=== PATIENT | female | born 1995 | race Caucasian/White ===

== ENCOUNTER 2018-09-09 21:57 | Inpatient (IN) | payer OTHER ==
--- NOTE | 2018-09-09 23:13 | PDOC ---
History of Present Illness - General Chief Complaint: Pain, Acute Stated Complaint: ABDPAIN History Source: Patient - History of Present Illness Initial Comments: 09/09/18 23:34 The patient is a 23 year old female who presents with a three day h/o abdominal pain. Pain is sharp, intermittent, localized to her B/L lower quadrants. Multiple episodes of NBNB emesis today. No fevers/chills. LMP August 26. No lifetime sexual activity States she had a cat scan at the office of her PMD ( Dr. Walters) yesterday that showed appendical inflammation, started on Cipro and Metronizadole. Decided to come to the ED tonight because her pain persisted and she started vomiting. NKDA Surgical: none reported Social: denies toxic habits PMD: Dr. Walters Past History - Past Medical History Allergies/Adverse Reactions: Allergies Allergy/AdvReac Type Severity Reaction Status Date / Time No Known Allergies Allergy Verified 09/02/11 12:11 Home Medications: Ambulatory Orders NK [No Known Home Medication] 09/10/18 COPD: No - Immunization History Immunization Up to Date: Yes - Suicide/Smoking/Psychosocial Hx Smoking Status: No Smoking History: Never smoked Number of Cigarettes Smoked Daily: 0 Hx Alcohol Use: No Drug/Substance Use Hx: No Review of Systems - Review of Systems Constitutional: No: Chills, Fever HEENTM: No: Recent change in vision, Hearing Loss Cardiac (ROS): No: Chest Pain, Lightheadedness, Palpitations, Syncope ABD/GI: Yes: Diarrhea, Vomiting, Abdominal cramping *Physical Exam - Vital Signs Last Vital Signs Temp Pulse Resp BP Pulse Ox 97.2 F L 119 H 20 130/81 98 09/09/18 22:01 09/09/18 22:01 09/09/18 22:01 09/09/18 22:01 09/09/18 22:01 - Physical Exam General Appearance: Yes: Nourished, Appropriately Dressed HEENT: positive: Normal Voice, Hearing Grossly Normal Neck: positive: Trachea midline, Supple Respiratory/Chest: positive: Lungs Clear. negative: Labored Respiration, Rapid RR Cardiovascular: positive: S1, S2 Gastrointestinal/Abdominal: positive: Normal Bowel Sounds, Soft Extremity: positive: Normal Capillary Refill, Normal Inspection ED Treatment Course - LABORATORY CBC & Chemistry Diagram: 09/09/18 23:48 09/09/18 23:48 Medical Decision Making - Medical Decision Making 09/10/18 00:16 23 year old with worsening abdominal pain, emesis, h/o CT scan wiht appendicial inflammation. Tachycardic (119) @ presentation, other VS unremarkable. Reports peritoneal sign (pain worse with walking). Frontal diagnosis: Acute abdomen including appendicitis vs. Ovarian Torsion . Also consider colitis, pancreatitis, gastritis, gastroenteritis. PLAN: 1. TVUS 2. CTAP 3. Basic labs 4. Urine 09/10/18 01:54 Cr 1.4 - h/o CT scan No leukocytosis Call placed to Dr. Walters - suggests hydration with additional 1 L, recommends CT scan 09/10/18 02:[address] Walters, reviewed EMR states patient was evaluated in office on 09/08/18 c/o 3 days of abdominal pain and diarrhea. CMP and CT ordered for this coming week. Clinical suspicion for colitis w/low threshold for appendicitis. As per Dr. Walters, patient did not receive a CT scan 09/10/18 03:52 CTAP shows dilated loops of bowel TVUS negative for torsion, cyst Patient reassessed @ bedside, RLQ guarding on PE Patient has been on antibiotics for 2+ days possibly masking appendicitis. Will admit for surgical evaluation in the a.m. Paged Dr. Walters 09/10/18 03:54 Case d/w Dr. Walters. Accepts for admission. Surgery consult in the a.m. Patient reports to nursing staff she did not receive her CT scan, though patient has a reported CT scan Repeat VS pending 09/10/18 04:35 Repeat VS HR 92, SpO2 98% on RA Morphine for pain control Patient resting comfortably Clinical Impression: ? appendicitis *DC/Admit/Observation/Transfer Diagnosis at time of Disposition: Abdominal pain - Discharge Dispostion Condition at time of disposition: Fair Decision to Admit order: Yes - Referrals - Patient Instructions - Post Discharge Activity
[2018-09-09] MEDS ORDERED: ACETAMINOPHEN 1000 MG/100 ML VIAL (NON FORMULARY) IVPB ONE (23:36)
[2018-09-09] MEDS ORDERED: SODIUM CHLORIDE 0.9% 500 ML INFUS.BAG IV ONE (23:36)
[2018-09-10 00:01] LABS: BASO % 0.2 % (0-2.0); EOS % 0.1 % (0-4.5); HEMATOCRIT 34.7 % (32.4-45.2); HEMOGLOBIN 11.7 GM/dL (10.7-15.3); MCH 29.3 pg (25.7-33.7); MCHC 33.7 g/dl (32.0-36.0); MEAN CELL VOLUME 87.1 fl (80-96); MEAN PLT VOLUME 7.8 fl (7.5-11.1); MONO % 10.8 % (3.8-10.2); NEUT % 74.9 % (42.8-82.8); PLATELET COUNT 233 K/MM3 (134-434); RBC 3.98 M/mm3 (3.60-5.2); RDW 13.5 % (11.6-15.6); WHITE BLOOD COUNT 10.5 K/mm3 (4.0-10.0)
[2018-09-10 00:15] LABS: INR 1.08 (0.83-1.09); PROTHROMBIN TIME (PATIENT) 12.7 SEC (9.7-13.0)
[2018-09-10] MEDS ORDERED: ACETAMINOPHEN INJECTION 100 ML IVPB ONE (00:16)
[2018-09-10 00:18] LABS: ACTIVATED PTT 33.1 SECONDS (25.2-36.5)
[2018-09-10 01:41] LABS: ALBUMIN 3.8 g/dl (3.4-5.0); ALK PHOS 73 U/L (45-117); ANION GAP 8 MMOL/L (8-16); BILIRUBIN,TOTAL 0.2 mg/dL (0.2-1); BLOOD UREA NITROGEN 15 mg/dL (7-18); CALCIUM 8.5 mg/dL (8.5-10.1); CHLORIDE 104 mmol/L (98-107); CO2 24 mmol/L (21-32); CREATININE 1.4 mg/dL (0.55-1.3); GLUCOSE,RANDOM 107 mg/dL (74-106); POTASSIUM 3.4 mmol/L (3.5-5.1); SGOT/AST 17 U/L (15-37); SGPT/ALT 17 U/L (13-61); SODIUM 136 mmol/L (136-145); TOT PROT 7.1 g/dl (6.4-8.2)
[2018-09-10] MEDS ORDERED: ONDANSETRON 4 MG/2 ML VIAL IVPUSH ONE (01:42)
--- NOTE | 2018-09-10 01:42 | PDOC ---
Documentation entered by Michela White SCRIBE, acting as scribe for Roxy Wylie MD. Roxy Wylie MD: This documentation has been prepared by the stepheneChristopher Lincy, SCRIBE, under my direction and personally reviewed by me in its entirety. I confirm that the documentation accurately reflects all work, treatment, procedures, and medical decision making performed by me. Attending Attestation - Resident Resident Name: Sakshi Mccartney - ED Attending Attestation I have performed the following: I have examined & evaluated the patient, The case was reviewed & discussed with the resident, I agree w/resident's findings & plan, Exceptions are as noted - HPI HPI: 09/10/18 00:28 The patient is a 23-year-old female with no reported past medical history presents to the emergency department with abdominal pain. The patient presents with an intermittent sharp pain to the lower abdominal region, associated with multiple episodes of vomiting, nonbloody-bilious. The patient reports following up with PCP, who did a CT scan, which showed appendiceal inflammation. The patient reports he was started on Cipro and Metronidazole. The patient states the pains been constant and decided to be evaluated. Denies fever, chills, chest pain, urinary symptoms or chnages in bowel habits. - Physicial Exam PE: 09/10/18 01:40 awake alert nad lungs clear bilaterally heart rrr no mrg abd soft periumbilical tenderness, rlq ttp. no rebound no guarding skin warm and dry. - Medical Decision Making 09/10/18 01:41 23 yo F with periumbilical pain, rlq pain, had outpt ct uknown results or equivocal results. here with worsenin gpain. nausea, no vomiting. mild ttp on exam rlq and periumbilical differential ovarian pathology cyst, appy, uti pyelo. plna ct a/p labs ivf. ua ucg.
[2018-09-10] MEDS ORDERED: ONDANSETRON 4 MG/2 ML VIAL ONE (03:08)
--- NOTE | 2018-09-10 03:45 | PDOC ---
*Physical Exam - Vital Signs Last Vital Signs Temp Pulse Resp BP Pulse Ox 97.2 F L 119 H 20 130/81 98 09/09/18 22:01 09/09/18 22:01 09/09/18 22:01 09/09/18 22:01 09/09/18 22:01 ED Treatment Course - LABORATORY CBC & Chemistry Diagram: 09/10/18 07:30 09/10/18 11:00 - ADDITIONAL ORDERS Additional order review: Laboratory Results 09/09/18 09/09/18 09/09/18 23:52 23:48 23:48 PT with INR INR PTT (Actin FS) Sodium Potassium Chloride Carbon Dioxide Anion Gap BUN Creatinine Creat Clearance w eGFR Random Glucose Lactic Acid 1.5 Calcium Total Bilirubin AST ALT Alkaline Phosphatase Total Protein Albumin Serum , Qual Negative Blood Type B POSITIVE Antibody Screen Negative 09/09/18 09/09/18 23:48 23:48 PT with INR 12.70 INR 1.08 PTT (Actin FS) 33.1 Sodium 136 Potassium 3.4 L Chloride 104 Carbon Dioxide 24 Anion Gap 8 BUN 15 Creatinine 1.4 H Creat Clearance w eGFR 47.02 Random Glucose 107 H Lactic Acid Calcium 8.5 Total Bilirubin 0.2 AST 17 ALT 17 Alkaline Phosphatase 73 Total Protein 7.1 Albumin 3.8 Serum , Qual Blood Type Antibody Screen 09/09/18 23:48 RBC 3.98 MCV 87.1 MCHC 33.7 RDW 13.5 MPV 7.8 Neutrophils % 74.9 Lymphocytes % 14.0 Monocytes % 10.8 H Eosinophils % 0.1 Basophils % 0.2 - Medications Given in the ED: ED Medications Discontinued Medications Generic Name Dose Route Start Last Admin Trade Name Dony PRN Reason Stop Dose Admin Acetaminophen 1,000 mg 09/09/18 23:36 09/10/18 00:23 Ofirmev Injection - IVPB 09/09/18 23:37 1,000 mg ONCE ONE Administration Ondansetron HCl 4 mg 09/10/18 01:42 09/10/18 03:15 Zofran Injection IVPUSH 09/10/18 01:43 4 mg ONCE ONE Administration Sodium Chloride 1,000 ml 09/09/18 23:36 09/10/18 00:23 Normal Saline - IV 09/09/18 23:37 1,000 ml ONCE ONE Administration Medical Decision Making - Medical Decision Making 09/10/18 03:44 Patient Name: KYM CROSS THIS IS A PRELIMINARY REPORT FROM [facility] DATE OF SERVICE: 2018-09-10 01:47:52 IMAGES: 40 EXAM: Ultrasound pelvis transabdominal and ultrasound pelvis transvaginal and ultrasound color duplex HISTORY: 23-year-old female mid abdominal and right pelvic pain COMPARISON: None. FINDINGS: Mild nonspecific distention of the bowel loops in the right pelvis. Nonspecific bulkiness of the cervix. The uterus measures 8.4 x 3.3 x 4.5 cm. There is no evidence of myometrial masses. The endometrium is normal in thickness and measures 8 mm. The right ovary measures 3 x 1.9 x 2 cm. There are no right ovarian masses. The left ovary measures 2.9 x 1.3 x 1.7 cm. There are no left ovarian masses. There is no free fluid in the pelvis. COLOR DUPLEX: There is satisfactory perfusion to both the left and right ovary with normal appearing arterial and venous spectral waveforms. IMPRESSION: No evidence of ovarian torsion. Mild nonspecific distention of the bowel loops in the right and pelvis. If there is a clinical concern for an abnormality associated with the bowel loops in the right pelvis then further evaluation and workup CT abdomen and pelvis with oral contrast and with IV contrast may be needed. Nonspecific bulkiness of the cervix. If clinically indicated follow-up outpatient [facility] consultation with direct visualization and further evaluation and workup of the cervix may be needed. 09/10/18 20:36 Pt admitted for med surg obs, as she continues to have RLQ rebound and pain. Pt will require nelson to r/o appendicitis. Appy picture has been complicated by the fact that pt has been taking serveral doses of cipro and flagyl *DC/Admit/Observation/Transfer Diagnosis at time of Disposition: Abdominal pain - Discharge Dispostion Condition at time of disposition: Fair - Referrals - Patient Instructions - Post Discharge Activity
[2018-09-10] MEDS ORDERED: morphine CARPU-JECT 2 MG/1 ML DISP.SYRIN IVPUSH ONE (04:15)
[2018-09-10] MEDS ORDERED: morphine SULFATE 4 MG/ML VIAL ONE (04:41)
[2018-09-10 04:52] LABS: URINE APPEARANCE CLEAR; URINE BILIRUBIN NEGATIVE (NEGATIVE); URINE COLOR YELLOW; URINE GLUCOSE (UA) NEGATIVE (NEGATIVE); URINE KETONE NEGATIVE (NEGATIVE); URINE LEUK ESTERASE NEGATIVE (NEGATIVE); URINE NITRITE NEGATIVE (NEGATIVE); URINE PROTEIN NEGATIVE (NEGATIVE); URINE UROBILINOGEN 0.2 mg/dL (0.2-1.0)
[2018-09-10 06:24] VITALS: BMI 24.9
[2018-09-10] MEDS ORDERED: ONDANSETRON 4 MG/2 ML VIAL IM PRN (10:51)
[2018-09-10] MEDS ORDERED: SODIUM CHLORIDE 1,000 ML IV SCH (11:00)
[2018-09-10 11:20] LABS: BASO % 0.3 % (0-2.0); HEMATOCRIT 35.9 % (32.4-45.2); HEMOGLOBIN 11.8 GM/dL (10.7-15.3); LYMPH % 19.7 % (8-40); MCH 28.8 pg (25.7-33.7); MCHC 32.9 g/dl (32.0-36.0); MEAN CELL VOLUME 87.5 fl (80-96); MEAN PLT VOLUME 8.6 fl (7.5-11.1); PLATELET COUNT 235 K/MM3 (134-434); RDW 13.5 % (11.6-15.6); WHITE BLOOD COUNT 9.3 K/mm3 (4.0-10.0)
--- NOTE | 2018-09-10 11:31 | HP ---
Admitting History and Physical - Admission History of Present Illness: 23-year-old female with no PMH, seen in the office for the first time 09/08/18 with 3 day hx of periumbilical abd pain and diarrhea -- denied fever / chills / anorexia/ at time of visit -- she was to be scheduled for CT of abd pelvis as out patient this coming week---but instructed to come to ER if pain persisted or got worse. She presented to the emergency department last night with increased abd pain / nausea and diarrhea. The patient presents with an intermittent sharp pain --descibed as colocky in nature-- to the lower abdominal region, associated with multiple episodes of vomiting, nonbloody- bilious, and watery stools which she describes as dark. She denies recent UTI or any correction urinary problems / reports has not been sexually active for the last 2 yrs / denies fever / chills / dysuria or frequency History Source: Patient, Medical Record Limitations to Obtaining History: No Limitations - Past Medical History Renal/: No: Hematuria ...: No - Smoking History Smoking history: Never smoked Aproximately how many cigarettes per day: 0 - Alcohol/Substance Use Hx Alcohol Use: No - Social History ADL: Independent History of Recent Travel: No Home Medications - Allergies Allergies/Adverse Reactions: Allergies Allergy/AdvReac Type Severity Reaction Status Date / Time No Known Allergies Allergy Verified 09/02/11 12:11 - Home Medications Home Medications: Ambulatory Orders NK [No Known Home Medication] 09/10/18 Review of Systems - Review of Systems Constitutional: denies: Chills, Fever, Loss of Appetite Eyes: reports: No Symptoms HENT: reports: No Symptoms Neck: reports: No Symptoms Cardiovascular: reports: No Symptoms Respiratory: reports: No Symptoms Gastrointestinal: reports: Abdominal Pain, Diarrhea, Nausea. denies: Dysphagia , Rectal Bleeding, Vomiting Blood Genitourinary: denies: Burning, Discharge, Dysuria, Flank Pain, Frequency, Hematuria Musculoskeletal: reports: No Symptoms Integumentary: reports: No Symptoms Neurological: reports: No Symptoms Endocrine: reports: No Symptoms Hematology/Lymphatic: reports: No Symptoms Psychiatric: reports: No Symptoms Physical Examination Vital Signs: Vital Signs Temperature 97.4 F L 09/10/18 09:23 Pulse Rate 83 09/10/18 09:23 Respiratory Rate 18 09/10/18 09:23 Blood Pressure 122/81 09/10/18 09:23 O2 Sat by Pulse Oximetry (%) 97 09/10/18 03:57 Constitutional: Yes: Well Nourished, No Distress, Calm, Mild Distress (due to abdominal pain) Eyes: Yes: WNL HENT: Yes: WNL Neck: Yes: WNL Cardiovascular: Yes: WNL Respiratory: Yes: WNL Gastrointestinal: Yes: WNL, Normal Bowel Sounds, Soft. No: Distention, Hyperactive Bowel Sounds, Hypoactive Bowel Sounds, Palpable Mass, Tenderness, Rebound ...Rectal Exam: Yes: Deferred Renal/: Yes: WNL Breast(s): Yes: WNL Musculoskeletal: Yes: WNL Extremities: Yes: WNL Edema: No Peripheral Pulses WNL: Yes Integumentary: Yes: WNL Neurological: Yes: Alert, Oriented ...Motor Strength: WNL Psychiatric: Yes: Alert, Oriented Problem List - Problems (1) Abdominal pain Assessment/Plan: CT of abd / pelvis at ER - perinephric stranding Rocephin 1gm IV cover for UTI / Pyelo evaluation bausea / poor PO intake GI evaluation ?? IBS / colitis .... new onset Code(s): R10.9 - UNSPECIFIED ABDOMINAL PAIN Qualifiers: Abdominal location: generalized Qualified Code(s): R10.84 - Generalized abdominal pain (2) Dehydration, mild Assessment/Plan: mildly elevated Cr IV fluid trend renal function renal U/S Code(s): E86.0 - DEHYDRATION
[2018-09-10 12:40] LABS: ALBUMIN 3.4 g/dl (3.4-5.0); ALK PHOS 69 U/L (45-117); ANION GAP 8 MMOL/L (8-16); BILIRUBIN,TOTAL 0.2 mg/dL (0.2-1); BLOOD UREA NITROGEN 15 mg/dL (7-18); CALCIUM 8.3 mg/dL (8.5-10.1); CHLORIDE 111 mmol/L (98-107); CO2 20 mmol/L (21-32); CREATININE 2.2 mg/dL (0.55-1.3); GLUCOSE,RANDOM 88 mg/dL (74-106); POTASSIUM 3.9 mmol/L (3.5-5.1); SGOT/AST 21 U/L (15-37); SGPT/ALT 15 U/L (13-61); SODIUM 138 mmol/L (136-145); TOT PROT 6.4 g/dl (6.4-8.2)
[2018-09-10] MEDS: SODIUM CHLORIDE 1,000 ML IV SCH (13:21)
[2018-09-10] MEDS ORDERED: cefTRIAXone SODIUM 1 GM VIAL ONE (13:25)
[2018-09-10] MEDS ORDERED: DEXTROSE 5%-WATER - 50 ML IVPB ONE (13:25)
[2018-09-10] MEDS: CEFTRIAXONE 1 GM in DEXTROSE 5%-WATER - 50 ML IVPB SCH (13:27)
[2018-09-10 13:28] LABS: AMYLASE 39 U/L (25-115); LIPASE 171 U/L (73-393)
[2018-09-10] MEDS ORDERED: ONDANSETRON 4 MG/2 ML VIAL IVPB PRN (18:33)
[2018-09-11] MEDS: SODIUM CHLORIDE 1,000 ML IV SCH ×3 (05:10→18:48)
[2018-09-11 07:53] LABS: ALBUMIN 3.1 g/dl (3.4-5.0); ALK PHOS 60 U/L (45-117); ANION GAP 11 MMOL/L (8-16); BASO % 0.2 % (0-2.0); BILIRUBIN,TOTAL 0.3 mg/dL (0.2-1); BLOOD UREA NITROGEN 14 mg/dL (7-18); CALCIUM 7.8 mg/dL (8.5-10.1); CHLORIDE 110 mmol/L (98-107); CO2 22 mmol/L (21-32); CREATININE 1.9 mg/dL (0.55-1.3); EOS % 0.3 % (0-4.5); GLUCOSE,RANDOM 84 mg/dL (74-106); HEMATOCRIT 33.6 % (32.4-45.2); LYMPH % 23.5 % (8-40); MCH 28.7 pg (25.7-33.7); MCHC 32.8 g/dl (32.0-36.0); MEAN CELL VOLUME 87.6 fl (80-96); MEAN PLT VOLUME 8.5 fl (7.5-11.1); MONO % 11.1 % (3.8-10.2); NEUT % 64.9 % (42.8-82.8); PLATELET COUNT 229 K/MM3 (134-434); POTASSIUM 4.4 mmol/L (3.5-5.1); RBC 3.83 M/mm3 (3.60-5.2); RDW 13.8 % (11.6-15.6); SGOT/AST 25 U/L (15-37); SGPT/ALT 13 U/L (13-61); SODIUM 142 mmol/L (136-145); TOT PROT 5.8 g/dl (6.4-8.2); WHITE BLOOD COUNT 9.4 K/mm3 (4.0-10.0)
--- NOTE | 2018-09-11 08:03 | CON.GI ---
Consult Consult Specialty:: GI Referred by:: Dr. Walters Reason for Consultation:: Abdominal pain - History of Present Illness History of Present Illness: Patient is a 23 y/o female with no significant past medical history. Patient states experiencing mid abdominal pain since Tuesday. Pain was described as burning, radiating to B/L lower quadrants, and was exacerbated with eating. Patient saw her PMD on 09/08 and was prescribed Flagyl and Ciprofloxacin for her abdominal pain. Abdominal pain continued and on 09/09 develop nausea and vomiting x 1 episode. She began experiencing non-bloody diarrhea, no fever, night awakening, or recent travel. CT scan in ER shows few diverticula in the distal descending and proximal sigmoid colon without gross evidence of acute diverticulitis, normal appearing appendix. Since admission has been having nausea and one episode of diarrhea this morning. - History Source History Provided By: Patient Limitations to Obtaining History: No Limitations - Past Medical History Renal/: No: Hematuria ...: No - Alcohol/Substance Use Hx Alcohol Use: No History of Substance Use: reports: None - Smoking History Smoking history: Never smoked Aproximately how many cigarettes per day: 0 - Social History ADL: Independent History of Recent Travel: No Home Medications - Allergies Allergies/Adverse Reactions: Allergies Allergy/AdvReac Type Severity Reaction Status Date / Time No Known Allergies Allergy Verified 09/02/11 12:11 - Home Medications Home Medications: Ambulatory Orders NK [No Known Home Medication] 09/10/18 Review of Systems - Review of Systems Constitutional: reports: No Symptoms Eyes: reports: No Symptoms HENT: reports: No Symptoms Neck: reports: No Symptoms Cardiovascular: reports: No Symptoms Respiratory: reports: No Symptoms Gastrointestinal: reports: Abdominal Pain, Diarrhea, Nausea, Vomiting Genitourinary: reports: No Symptoms Breasts: reports: No Symptoms Reported Musculoskeletal: reports: No Symptoms Integumentary: reports: No Symptoms Neurological: reports: No Symptoms Endocrine: reports: No Symptoms Hematology/Lymphatic: reports: No Symptoms Psychiatric: reports: No Symptoms Physical Exam-GI Vital Signs: Vital Signs Temperature 98.6 F 09/11/18 05:57 Pulse Rate 52 L 09/11/18 05:57 Respiratory Rate 18 09/11/18 05:57 Blood Pressure 122/71 09/11/18 05:57 O2 Sat by Pulse Oximetry (%) 97 09/10/18 03:57 Constitutional: Yes: No Distress, Calm Eyes: Yes: Conjunctiva Clear HENT: Yes: Atraumatic Cardiovascular: Yes: Regular Rate and Rhythm Respiratory: Yes: Regular, CTA Bilaterally Gastrointestinal Inspection: Yes: WNL. No: Ascites, Distention, Hernia, Scars, Other ...Auscultate: Yes: Normoactive Bowel Sounds. No: Hyperactive Bowel Sounds, Hypoactive Bowel Sounds, No Bowel Sounds, Other ...Palpate: Yes: Soft, Tenderness (epigastric). No: Firm/Rigid, Guarding, Hepatomegaly, Mass, Pulsatile Mass, Splenomegaly, Tenderness, Epigastium, Tenderness, Rebound, Other ...Percussion: Yes: Tympanitic. No: Dullness, Fluid Wave, Other Neurological: Yes: Alert, Oriented Psychiatric: Yes: Alert, Oriented Labs: CBC, BMP 09/11/18 06:48 INR, PTT INR 1.08 (0.83-1.09) 09/09/18 23:48 Active Medications Generic Name Dose Route Start Last Admin Trade Name Freq PRN Reason Stop Dose Admin Sodium Chloride 1,000 mls @ 200 mls/hr 09/10/18 11:37 09/11/18 05:10 Normal Saline - IV 200 mls/hr ASDIR AC Administration Ceftriaxone Sodium 1 gm/ 50 mls @ 100 mls/hr 09/10/18 12:15 09/10/18 13:27 Dextrose IVPB 100 mls/hr DAILY AC Administration Protocol Ondansetron HCl 4 mg 09/10/18 18:33 Zofran Injection IVPB Q6H PRN NAUSEA AND/OR VOMITING Imaging - Results Cat Scan: Report Reviewed Ultrasound: Report Reviewed Problem List - Problems (1) Abdominal pain Assessment/Plan: R>Abdominal US R/O gallstones >IV hydration >pending stool culture and c-diff >zofran prn for nausea >start on pantoprazole 40mg BID >reglan 10mg IVPB TID Code(s): R10.9 - UNSPECIFIED ABDOMINAL PAIN
[2018-09-11] MEDS ORDERED: DEXTROSE 5%-WATER - 50 ML IVPB ONE (09:05)
[2018-09-11] MEDS ORDERED: cefTRIAXone SODIUM 1 GM VIAL ONE (09:05)
[2018-09-11] MEDS ORDERED: METOCLOPRAMIDE HCL INJECTION 10 MG/2 ML VIAL IVPUSH PRN (09:28)
[2018-09-11] MEDS: CEFTRIAXONE 1 GM in DEXTROSE 5%-WATER - 50 ML IVPB SCH (10:00)
[2018-09-11] MEDS ORDERED: PANTOPRAZOLE SODIUM 40 MG VIAL IVPUSH SCH (10:00)
[2018-09-11] MEDS ORDERED: PANTOPRAZOLE SODIUM 40 MG in SODIUM CHLORIDE 100 ML IVPB SCH (10:00)
--- NOTE | 2018-09-11 12:57 | CON.GU ---
Consult Consult Specialty:: urology Referred by:: Romeo Reason for Consultation:: acute renal insufficiency with question of hydronephrosis - History of Present Illness Chief Complaint: acute renal insufficiency History of Present Illness: Patient is a 23 year old female with history of diarrhea, fever, and abdominal pain. Patient denies gross hematuria, dysure, or history of kidney stones. The patient had an initial CT scan which showed mild bilateral hydronephrosis. Two subsequent renal sonograms showed no evidence of hydronephrosis. The patient denies flank pain. - History Source History Provided By: Patient Limitations to Obtaining History: No Limitations - Past Medical History Renal/: No: Hematuria ...: No - Alcohol/Substance Use Hx Alcohol Use: No History of Substance Use: reports: None - Smoking History Smoking history: Never smoked Aproximately how many cigarettes per day: 0 - Social History ADL: Independent History of Recent Travel: No Home Medications - Allergies Allergies/Adverse Reactions: Allergies Allergy/AdvReac Type Severity Reaction Status Date / Time No Known Allergies Allergy Verified 09/02/11 12:11 - Home Medications Home Medications: Ambulatory Orders NK [No Known Home Medication] 09/10/18 Physical Exam- Vital Signs: Vital Signs Temperature 97.7 F 09/11/18 10:00 Pulse Rate 53 L 09/11/18 10:00 Respiratory Rate 18 09/11/18 10:00 Blood Pressure 124/77 09/11/18 10:00 O2 Sat by Pulse Oximetry (%) 100 09/11/18 09:00 Constitutional: Yes: Well Nourished, No Distress, Calm Eyes: Yes: WNL, Conjunctiva Clear, EOM Intact HENT: Yes: WNL, Atraumatic, Normocephalic Neck: Yes: WNL, Supple, Trachea Midline Respiratory: Yes: WNL Gastrointestinal: Yes: Soft, Hypoactive Bowel Sounds Renal/: Yes: WNL Kidneys: Yes: WNL Pelvis: Yes: WNL External Genitalia: Yes: WNL Musculoskeletal: Yes: WNL Extremities: Yes: WNL Labs: CBC, BMP 09/11/18 06:48 09/11/18 06:48 Imaging - Results Cat Scan: Report Reviewed Ultrasound: Report Reviewed Assessment/Plan impression acute renal insufficiency without evidence of obstructive uropathy plan renal insufficiency most likely seconday to dehydration no evidence of obstuctive uropathy
--- NOTE | 2018-09-11 19:25 | PN ---
Progress Note (short form) - Note Progress Note: ashely seen and examined this am episode of vomiting yesterday with upper abdominal discomfort today headed for U/S Vital Signs Period Temp Pulse Resp BP Sys/Dueñas Pulse Ox Last 24 Hr 97.7 F-99.9 F 52-75 16-18 111-126/67-84 100 neck supple heart S1/s2 regular Lungs clear bilat abd soft non tneder BS + ext non edema CBC, BMP 09/11/18 06:48 09/11/18 06:48 abdominal U/S ordered r/o gall bladder stones renal U/S reviewed -- kidneys unremarkable CT abdo / pelvis reviewed -- preinephric stranding ?? Microbiology 09/11/18 06:00 Stool Clostridioides difficile Antigen - Final 09/11/18 06:00 Stool Clostridioides difficile Toxin Assay - Final 09/10/18 04:39 Urine - Urine Clean Catch Urine Culture - Final NO GROWTH OBTAINED Active Medications Sodium Chloride (Normal Saline -) 1,000 mls @ 200 mls/hr IV ASDIR AC Last Admin: 09/11/18 18:48 Dose: 200 mls/hr Ceftriaxone Sodium 1 gm/ (Dextrose) 50 mls @ 100 mls/hr IVPB DAILY [facility]; Protocol Last Admin: 09/11/18 10:00 Dose: 100 mls/hr Metronidazole (Flagyl -) 250 mg PO TID AC Ondansetron HCl (Zofran Injection) 4 mg IVPB Q6H PRN PRN Reason: NAUSEA AND/OR VOMITING Pantoprazole Sodium (Protonix -) 40 mg PO DAILY [facility] assmt / plan # SAVAGE non specific finding CT negative U/S Cr inc in spite if IV fluids U/A nephrology consult # Abdominal pain recent onset ? diet related IBS ?? abdominal u/s GI consult Problem List - Problems (1) Abdominal pain Code(s): R10.9 - UNSPECIFIED ABDOMINAL PAIN (2) Dehydration, mild Code(s): E86.0 - DEHYDRATION
[2018-09-11] MEDS: metroNIDAZOLE 250 MG TABLET PO SCH (22:01)
[2018-09-12] MEDS: SODIUM CHLORIDE 1,000 ML IV SCH ×4 (00:16→16:27)
[2018-09-12] MEDS: metroNIDAZOLE 250 MG TABLET PO SCH ×3 (05:33→21:13)
[2018-09-12 07:35] LABS: BASO % 0.1 % (0-2.0); EOS % 0.3 % (0-4.5); HEMATOCRIT 32.8 % (32.4-45.2); HEMOGLOBIN 11.1 GM/dL (10.7-15.3); LYMPH % 22.7 % (8-40); MCH 29.1 pg (25.7-33.7); MCHC 33.9 g/dl (32.0-36.0); MEAN PLT VOLUME 8.2 fl (7.5-11.1); MONO % 8.5 % (3.8-10.2); NEUT % 68.4 % (42.8-82.8); PLATELET COUNT 231 K/MM3 (134-434); RBC 3.81 M/mm3 (3.60-5.2); RDW 13.5 % (11.6-15.6); WHITE BLOOD COUNT 8.6 K/mm3 (4.0-10.0)
[2018-09-12 08:22] LABS: ALBUMIN 2.8 g/dl (3.4-5.0); ALK PHOS 57 U/L (45-117); ANION GAP 7 MMOL/L (8-16); BILIRUBIN,TOTAL 0.3 mg/dL (0.2-1); BLOOD UREA NITROGEN 9 mg/dL (7-18); CALCIUM 7.7 mg/dL (8.5-10.1); CHLORIDE 112 mmol/L (98-107); CO2 21 mmol/L (21-32); CREATININE 1.1 mg/dL (0.55-1.3); GLUCOSE,RANDOM 78 mg/dL (74-106); LDH 211 U/L (84-246); POTASSIUM 3.8 mmol/L (3.5-5.1); SGOT/AST 18 U/L (15-37); SGPT/ALT 13 U/L (13-61); SODIUM 141 mmol/L (136-145); TOT PROT 5.6 g/dl (6.4-8.2)
[2018-09-12] MEDS ORDERED: cefTRIAXone SODIUM 1 GM VIAL ONE (08:47)
[2018-09-12] MEDS ORDERED: DEXTROSE 5%-WATER - 50 ML IVPB ONE (08:47)
--- NOTE | 2018-09-12 08:54 | PN.GI ---
GI Progress Note Subjective: Patient complain of nausea this morning accompanied wiht mid abdominal pain described as feeling "gassy and bloated". Abdominal US shows normal gallbladder and biliary tree. Denies vomiting, diarrhea, rectal bleeding. - Objective Vital Signs: Vital Signs Temperature 99.2 F 09/12/18 06:23 Pulse Rate 85 09/12/18 06:23 Respiratory Rate 18 09/12/18 06:23 Blood Pressure 128/77 09/12/18 06:23 O2 Sat by Pulse Oximetry (%) 100 09/11/18 21:00 Constitutional: No Distress, Calm Eyes: Yes: Conjunctiva Clear HENT: Yes: Atraumatic Cardiovascular: Yes: Regular Rate and Rhythm Respiratory: Yes: Regular, CTA Bilaterally Gastrointestinal Inspection: Yes: WNL. No: Ascites, Distention, Hernia, Scars, Other ...Auscultate: Yes: Normoactive Bowel Sounds. No: Hyperactive Bowel Sounds, Hypoactive Bowel Sounds, No Bowel Sounds, Other ...Palpate: Yes: Soft, Tenderness (mid abdomen, b/l lower quadrants). No: Firm/ Rigid, Guarding, Hepatomegaly, Mass, Pulsatile Mass, Splenomegaly, Tenderness, Epigastium, Tenderness, Rebound, Other ...Percussion: Yes: Tympanitic. No: Dullness, Fluid Wave, Other Neurological: Yes: Alert, Oriented Psychiatric: Yes: Alert, Oriented Labs: CBC, BMP 09/12/18 07:15 09/12/18 07:15 INR, PTT INR 1.08 (0.83-1.09) 09/09/18 23:48 Active Medications Generic Name Dose Route Start Last Admin Trade Name Freq PRN Reason Stop Dose Admin Sodium Chloride 1,000 mls @ 200 mls/hr 09/10/18 11:37 09/12/18 05:33 Normal Saline - IV 200 mls/hr ASDIR AC Administration Ceftriaxone Sodium 1 gm/ 50 mls @ 100 mls/hr 09/10/18 12:15 09/11/18 10:00 Dextrose IVPB 100 mls/hr DAILY AC Administration Protocol Metronidazole 250 mg 09/11/18 22:00 09/12/18 05:33 Flagyl - PO 250 mg TID AC Administration Ondansetron HCl 4 mg 09/10/18 18:33 Zofran Injection IVPB Q6H PRN NAUSEA AND/OR VOMITING Pantoprazole Sodium 40 mg 09/12/18 10:00 Protonix - PO DAILY AC Problem List - Problems (1) Abdominal pain Assessment/Plan: R>Abdominal US reviewed >IV hydration >stool culture and c-diff neg >zofran prn for nausea >pantoprazole 40mg BID >reglan 10mg IVPB TID Code(s): R10.9 - UNSPECIFIED ABDOMINAL PAIN Qualifiers: Abdominal location: generalized Qualified Code(s): R10.84 - Generalized abdominal pain
--- NOTE | 2018-09-12 09:48 | PN ---
Progress Note (short form) - Note Progress Note: ashely seen and examined this am episode of vomiting yesterday with upper abdominal discomfort Vital Signs Period Temp Pulse Resp BP Sys/Dueñas Pulse Ox Last 24 Hr 97.7 F-99.2 F 53-85 18-18 111-128/69-84 100 neck supple heart S1/s2 regular Lungs clear bilat abd soft non tneder BS + ext non edema CBC, BMP 09/12/18 07:15 09/12/18 07:15 CBC, BMP 09/11/18 06:48 09/11/18 06:48 abdominal U/S Nl gallbladder / no significant findings renal U/S reviewed -- kidneys unremarkable CT abdo / pelvis reviewed -- preinephric stranding ?? Microbiology 09/11/18 06:00 Stool Salmonella/Shigella Culture - Preliminary NO ENTERIC PATHOGENS, 24 HOURS, ON PRIMARY PLATES 09/11/18 06:00 Stool Yersinia Culture - Preliminary NO ENTERIC PATHOGENS, 24 HOURS, ON PRIMARY PLATES 09/11/18 06:00 Stool Vibrio Culture - Final NO GROWTH OF VIBRIO SPECIES OBTAINED 09/11/18 06:00 Stool Escherichia coli 0157 Culture - Final NO GROWTH OF E COLI 0157 OBTAINED 09/11/18 06:00 Stool Clostridioides difficile Antigen - Final 09/11/18 06:00 Stool Clostridioides difficile Toxin Assay - Final 09/10/18 04:39 Urine - Urine Clean Catch Urine Culture - Final NO GROWTH OBTAINED Active Medications Sodium Chloride (Normal Saline -) 1,000 mls @ 200 mls/hr IV ASDIR [facility] Last Admin: 09/12/18 05:33 Dose: 200 mls/hr Ceftriaxone Sodium 1 gm/ (Dextrose) 50 mls @ 100 mls/hr IVPB DAILY [facility]; Protocol Last Admin: 09/11/18 10:00 Dose: 100 mls/hr Metronidazole (Flagyl -) 250 mg PO TID [facility] Last Admin: 09/12/18 05:33 Dose: 250 mg Ondansetron HCl (Zofran Injection) 4 mg IVPB Q6H PRN PRN Reason: NAUSEA AND/OR VOMITING Pantoprazole Sodium (Protonix -) 40 mg PO DAILY [facility] assmt / plan # SAVAGE non specific finding CT negative U/S Cr back to Nl this am w/u in progress nephrology consult # Abdominal pain recent onset ? diet related IBS ?? abdominal u/s negative GI consult appreciated Problem List - Problems (1) Abdominal pain Code(s): R10.9 - UNSPECIFIED ABDOMINAL PAIN Qualifiers: Abdominal location: generalized Qualified Code(s): R10.84 - Generalized abdominal pain (2) Dehydration, mild Code(s): E86.0 - DEHYDRATION
[2018-09-12] MEDS: PANTOPRAZOLE 40 MG TABLET (FP) PO SCH (09:57)
[2018-09-12] MEDS: CEFTRIAXONE 1 GM in DEXTROSE 5%-WATER - 50 ML IVPB SCH (09:58)
--- NOTE | 2018-09-12 17:37 | CONSULT ---
Consult Consult Specialty:: Nephrology Reason for Consultation:: DAVID - History of Present Illness Chief Complaint: abdominal pain History of Present Illness: Pt is a 23 year old female with no pmhx who presented with abdominal pain a few days ago. She says that she had a few episodes of vomiting. She has not had much appetite so she wasnt really eating or drinking for days. She denies fevers or chills. She feels that the pain was epigastric. She was found to be in DAVID and I was called to evaluate her. She says that the abdominal pain is improved today. SHe is tolerating clears. She denies family hx of CKD or ESRD. She denies nsaid use. She denies dysuria or hematuria. She denies flank pain. - History Source History Provided By: Patient - Past Medical History Renal/: No: Hematuria ...: No - Alcohol/Substance Use Hx Alcohol Use: No History of Substance Use: reports: None - Smoking History Smoking history: Never smoked Aproximately how many cigarettes per day: 0 - Social History ADL: Independent History of Recent Travel: No Home Medications - Allergies Allergies/Adverse Reactions: Allergies Allergy/AdvReac Type Severity Reaction Status Date / Time No Known Allergies Allergy Verified 09/02/11 12:11 - Home Medications Home Medications: Ambulatory Orders NK [No Known Home Medication] 09/10/18 Family Disease History - Family Disease History Family History: Denies Review of Systems - Review of Systems Constitutional: reports: Malaise. denies: Chills, Fever Eyes: reports: No Symptoms HENT: reports: No Symptoms Neck: reports: No Symptoms Cardiovascular: reports: No Symptoms Respiratory: reports: No Symptoms Gastrointestinal: reports: Abdominal Pain, Vomiting Genitourinary: reports: No Symptoms. denies: Hematuria Musculoskeletal: reports: No Symptoms Integumentary: reports: No Symptoms Neurological: reports: No Symptoms Endocrine: reports: No Symptoms Hematology/Lymphatic: reports: No Symptoms Psychiatric: reports: No Symptoms Physical Exam Vital Signs: Vital Signs Temperature 98.0 F 09/12/18 14:44 Pulse Rate 61 09/12/18 14:44 Respiratory Rate 18 09/12/18 14:44 Blood Pressure 108/65 09/12/18 14:44 O2 Sat by Pulse Oximetry (%) 100 09/11/18 21:00 Constitutional: Yes: Calm Eyes: Yes: Conjunctiva Clear HENT: Yes: Atraumatic Neck: Yes: Supple Cardiovascular: Yes: S1, S2 Respiratory: Yes: CTA Bilaterally Gastrointestinal: Yes: Normal Bowel Sounds, Soft Renal/: Yes: WNL. No: CVA Tenderness - Left, CVA Tenderness - Right Musculoskeletal: Yes: WNL Edema: No Integumentary: Yes: WNL Neurological: Yes: Oriented Psychiatric: Yes: Oriented Labs: CBC, BMP 09/12/18 07:15 09/12/18 07:15 Laboratory Tests 09/09/18 09/09/18 09/10/18 23:48 23:48 04:39 WBC 10.5 H Sodium Potassium Chloride Carbon Dioxide Creatinine 1.4 H Urine Protein Negative Urine Blood Negative LAVELL Screen c-ANCA Proteinase 3 (PR3) p-ANCA Atypical p-ANCA Myeloperoxidase Ab 09/10/18 09/10/18 09/11/18 07:30 11:00 06:48 WBC 9.3 9.4 Sodium 138 Potassium 3.9 Chloride 111 H Carbon Dioxide 20 L Creatinine 2.2 H Urine Protein Urine Blood LAVELL Screen c-ANCA Proteinase 3 (PR3) p-ANCA Atypical p-ANCA Myeloperoxidase Ab 09/11/18 09/12/18 09/12/18 06:48 07:15 07:15 WBC 8.6 Sodium Potassium Chloride Carbon Dioxide Creatinine 1.9 H 1.1 Urine Protein Urine Blood LAVELL Screen c-ANCA Proteinase 3 (PR3) p-ANCA Atypical p-ANCA Myeloperoxidase Ab 09/12/18 07:15 WBC Sodium Potassium Chloride Carbon Dioxide Creatinine Urine Protein Urine Blood [facility]AVELL Screen Pending c-ANCA Pending Proteinase 3 (PR3) Pending p-ANCA Pending Atypical p-ANCA Pending Myeloperoxidase Ab Pending Imaging - Results Ultrasound: Report Reviewed Problem List - Problems (1) Dehydration Code(s): E86.0 - DEHYDRATION (2) Abdominal pain Code(s): R10.9 - UNSPECIFIED ABDOMINAL PAIN Qualifiers: Abdominal location: generalized Qualified Code(s): R10.84 - Generalized abdominal pain Assessment/Plan Current Medications Generic Name Dose Route Start Last Admin Trade Name Freq PRN Reason Stop Dose Admin Sodium Chloride 1,000 mls @ 200 mls/hr 09/10/18 11:37 09/12/18 16:27 Normal Saline - IV 200 mls/hr ASDIR [facility] Administration Ceftriaxone Sodium 1 gm/ 50 mls @ 100 mls/hr 09/10/18 12:15 09/12/18 09:58 Dextrose IVPB 100 mls/hr DAILY [facility] Administration Protocol Metronidazole 250 mg 09/11/18 22:00 09/12/18 14:02 Flagyl - PO 250 mg TID [facility] Administration Ondansetron HCl 4 mg 09/10/18 18:33 09/12/18 16:27 Zofran Injection IVPB 4 mg Q6H PRN Administration NAUSEA AND/OR VOMITING Pantoprazole Sodium 40 mg 09/12/18 10:00 09/12/18 09:57 Protonix - PO 40 mg DAILY [facility] Administration Impression 1. DAVID 2. dehydration 3. abdominal pain Plan - ua negative for blood or protein - renal function is improved - repeat labs in am - follow serologies - david likely from dehydration, secondary to GI losses - can decrease rate of fluids - repeat ua - pt now tolerating diet Dr Muse
[2018-09-12] MEDS ORDERED: SODIUM CHLORIDE 1,000 ML IV SCH (17:42)
[2018-09-13] MEDS: metroNIDAZOLE 250 MG TABLET PO SCH (05:42)
[2018-09-13 07:20] LABS: BASO % 0.1 % (0-2.0); EOS % 1.1 % (0-4.5); HEMATOCRIT 31.3 % (32.4-45.2); HEMOGLOBIN 10.7 GM/dL (10.7-15.3); LYMPH % 23.9 % (8-40); MCH 29.1 pg (25.7-33.7); MCHC 34.1 g/dl (32.0-36.0); MEAN CELL VOLUME 85.3 fl (80-96); MEAN PLT VOLUME 8.2 fl (7.5-11.1); MONO % 7.5 % (3.8-10.2); NEUT % 67.4 % (42.8-82.8); PLATELET COUNT 244 K/MM3 (134-434); RBC 3.66 M/mm3 (3.60-5.2); RDW 13.2 % (11.6-15.6); WHITE BLOOD COUNT 7.9 K/mm3 (4.0-10.0)
[2018-09-13 07:46] LABS: ALBUMIN 2.8 g/dl (3.4-5.0); ALK PHOS 55 U/L (45-117); ANION GAP 5 MMOL/L (8-16); BILIRUBIN,TOTAL 0.3 mg/dL (0.2-1); BLOOD UREA NITROGEN 5 mg/dL (7-18); CALCIUM 7.9 mg/dL (8.5-10.1); CHLORIDE 109 mmol/L (98-107); CO2 24 mmol/L (21-32); CREATININE 0.9 mg/dL (0.55-1.3); GLUCOSE,RANDOM 96 mg/dL (74-106); POTASSIUM 3.5 mmol/L (3.5-5.1); SGOT/AST 20 U/L (15-37); SGPT/ALT 17 U/L (13-61); SODIUM 139 mmol/L (136-145); TOT PROT 5.6 g/dl (6.4-8.2)
[2018-09-13 08:36] LABS: URINE APPEARANCE CLEAR; URINE BILIRUBIN NEGATIVE (NEGATIVE); URINE COLOR YELLOW; URINE GLUCOSE (UA) NEGATIVE (NEGATIVE); URINE KETONE NEGATIVE (NEGATIVE); URINE LEUK ESTERASE NEGATIVE (NEGATIVE); URINE NITRITE NEGATIVE (NEGATIVE); URINE PROTEIN NEGATIVE (NEGATIVE); URINE UROBILINOGEN 0.2 mg/dL (0.2-1.0)
[2018-09-13] MEDS ORDERED: cefTRIAXone SODIUM 1 GM VIAL ONE (09:07)
[2018-09-13] MEDS ORDERED: DEXTROSE 5%-WATER - 50 ML IVPB ONE (09:07)
[2018-09-13 09:17] VITALS: BP 112/84; PULSE 66; TEMP 98.6
--- NOTE | 2018-09-13 09:47 | PN ---
Progress Note (short form) - Note Progress Note: ashely seen and examined this am episode of vomiting yesterday with upper abdominal discomfort Vital Signs Period Temp Pulse Resp BP Sys/Dueñas Pulse Ox Last 24 Hr 97.7 F-99.2 F 53-85 18-18 111-128/69-84 100 neck supple heart S1/s2 regular Lungs clear bilat abd soft non tneder BS + ext non edema CBC, BMP 09/13/18 06:05 09/13/18 06:05 CBC, BMP 09/12/18 07:15 09/12/18 07:15 CBC, BMP 09/11/18 06:48 09/11/18 06:48 abdominal U/S Nl gallbladder / no significant findings renal U/S reviewed -- kidneys unremarkable CT abdo / pelvis reviewed -- preinephric stranding ?? Microbiology 09/11/18 06:00 Stool Salmonella/Shigella Culture - Final NO GROWTH OF SALMONELLA OR SHIGELLA SPECIES OBTAINED 09/11/18 06:00 Stool Campylobacter Culture - Final NO GROWTH OF CAMPYLOBACTER SPECIES OBTAINED 09/11/18 06:00 Stool Yersinia Culture - Final NO GROWTH OF YERSINIA SPECIES OBTAINED 09/11/18 06:00 Stool Vibrio Culture - Final NO GROWTH OF VIBRIO SPECIES OBTAINED 09/11/18 06:00 Stool Escherichia coli 0157 Culture - Final NO GROWTH OF E COLI 0157 OBTAINED 09/12/18 01:45 Urine - Urine Clean Catch Urine Culture - Final NO GROWTH OBTAINED 09/11/18 06:00 Stool Clostridioides difficile Antigen - Final 09/11/18 06:00 Stool Clostridioides difficile Toxin Assay - Final 09/10/18 04:39 Urine - Urine Clean Catch Urine Culture - Final NO GROWTH OBTAINED Active Medications Ceftriaxone Sodium 1 gm/ (Dextrose) 50 mls @ 100 mls/hr IVPB DAILY [facility]; Protocol Last Admin: 09/12/18 09:58 Dose: 100 mls/hr Sodium Chloride (Normal Saline -) 1,000 mls @ 100 mls/hr IV ASDIR [facility] Last Admin: 09/12/18 18:59 Dose: 100 mls/hr Metronidazole (Flagyl -) 250 mg PO TID [facility] Last Admin: 09/13/18 05:42 Dose: 250 mg Ondansetron HCl (Zofran Injection) 4 mg IVPB Q6H PRN PRN Reason: NAUSEA AND/OR VOMITING Last Admin: 09/12/18 16:27 Dose: 4 mg Pantoprazole Sodium (Protonix -) 40 mg PO DAILY [facility] Last Admin: 09/12/18 09:57 Dose: 40 mg assmt / plan # SAVAGE non specific finding CT negative U/S Cr back to Nl this am w/u in progress nephrology consult appreciated # Abdominal pain recent onset ? diet related IBS ?? abdominal u/s negative GI consult appreciated Problem List - Problems (1) Abdominal pain Code(s): R10.9 - UNSPECIFIED ABDOMINAL PAIN Qualifiers: Abdominal location: generalized Qualified Code(s): R10.84 - Generalized abdominal pain (2) Dehydration, mild Code(s): E86.0 - DEHYDRATION
--- NOTE | 2018-09-13 10:12 | DS ---
Physical Examination Vital Signs: Vital Signs Temperature 98.6 F 09/13/18 09:17 Pulse Rate 66 09/13/18 09:17 Respiratory Rate 18 09/13/18 09:17 Blood Pressure 112/84 09/13/18 09:17 O2 Sat by Pulse Oximetry (%) 99 09/12/18 21:00 Findings/Remarks: 23-year-old female with no PMH, seen in the office for the first time 09/08/18 with 3 day hx of periumbilical abd pain and diarrhea -- denied fever / chills / anorexia/ at time of visit -- she was to be scheduled for CT of abd pelvis as out patient this coming week---but instructed to come to ER if pain persisted or got worse. She presented to the emergency department last night with increased abd pain / nausea and diarrhea. The patient presents with an intermittent sharp pain --descibed as colocky in nature-- to the lower abdominal region, associated with multiple episodes of vomiting, nonbloody- bilious, and watery stools which she describes as dark. She was admitted and continued with episodes of abdominal pain and vomiting -- CR inc to 2.2 during hospitalization but corrected with inc IV fluids. Patient was evaluated by GI / and renal all imaging was negative for pathology renal work up in progress -- she will follow up at office and with nephrology as out patient \ # SAVAGE non specific finding CT negative U/S Cr back to Nl at time of d/c w/u in progress nephrology consult appreciated - she will [id number] up as out patient # Abdominal pain recent onset ? diet related IBS ?? Viral ? abdominal u/s negative GI consult appreciated At time of d/c patient stated sx mostly resolved / has tolerated diet well no further nausea or vomiting Constitutional: Yes: Well Nourished, No Distress, Calm Eyes: Yes: WNL, Conjunctiva Clear, EOM Intact HENT: Yes: WNL, Atraumatic, Normocephalic Neck: Yes: WNL, Supple, Trachea Midline Cardiovascular: Yes: WNL, Regular Rate and Rhythm Respiratory: Yes: WNL, Regular, CTA Bilaterally Gastrointestinal: Yes: WNL, Normal Bowel Sounds, Soft. No: Distention, Tenderness, Tenderness, Epigastrium, Tenderness, Rebound, Vomiting ...Rectal Exam: Yes: Deferred Breast(s): Yes: WNL Musculoskeletal: Yes: WNL Extremities: Yes: WNL Edema: No Peripheral Pulses WNL: Yes Integumentary: Yes: WNL Neurological: Yes: Alert, Oriented ...Motor Strength: WNL Psychiatric: Yes: WNL, Alert, Oriented Labs: CBC, BMP 09/13/18 06:05 09/13/18 06:05 Discharge Summary Reason For Visit: ABD PAIN Current Active Problems Abdominal pain (Acute) Dehydration (Acute) Dehydration, mild (Acute) acute renal failure Condition: Improved - Instructions Referrals: Heidi Muse MD [Staff Physician] - Disposition: HOME - Home Medications Comprehensive Discharge Medication List: Ambulatory Orders NK [No Known Home Medication] 09/10/18
[2018-09-13] MEDS: CEFTRIAXONE 1 GM in DEXTROSE 5%-WATER - 50 ML IVPB SCH (10:29)
[2018-09-13] MEDS: PANTOPRAZOLE 40 MG TABLET (FP) PO SCH (10:29)
--- NOTE | 2018-09-13 11:50 | PN ---
Progress Note, Physician History of Present Illness: Pt seen and examined at bedside. She is awake and alert. She denies shortness of breath. She denies dysuria. She feels abdominal pain is improved. She denies dysuria or hematuria. - Current Medication List Current Medications: Active Medications Ceftriaxone Sodium 1 gm/ (Dextrose) 50 mls @ 100 mls/hr IVPB DAILY [facility]; Protocol Last Admin: 09/13/18 10:29 Dose: 100 mls/hr Sodium Chloride (Normal Saline -) 1,000 mls @ 100 mls/hr IV ASDIR [facility] Last Admin: 09/12/18 18:59 Dose: 100 mls/hr Metronidazole (Flagyl -) 250 mg PO TID [facility] Last Admin: 09/13/18 05:42 Dose: 250 mg Ondansetron HCl (Zofran Injection) 4 mg IVPB Q6H PRN PRN Reason: NAUSEA AND/OR VOMITING Last Admin: 09/12/18 16:27 Dose: 4 mg Pantoprazole Sodium (Protonix -) 40 mg PO DAILY [facility] Last Admin: 09/13/18 10:29 Dose: 40 mg - Objective Vital Signs: Vital Signs Temperature 98.6 F 09/13/18 09:17 Pulse Rate 66 09/13/18 09:17 Respiratory Rate 18 09/13/18 09:17 Blood Pressure 112/84 09/13/18 09:17 O2 Sat by Pulse Oximetry (%) 99 09/12/18 21:00 Constitutional: Yes: Calm Eyes: Yes: Conjunctiva Clear HENT: Yes: Atraumatic Cardiovascular: Yes: S1, S2 Respiratory: Yes: CTA Bilaterally Gastrointestinal: Yes: Soft Genitourinary: Yes: WNL Musculoskeletal: Yes: WNL Edema: No Neurological: Yes: Oriented Psychiatric: Yes: Oriented Labs: CBC, BMP 09/13/18 06:05 09/13/18 06:05 INR, PTT INR 1.08 (0.83-1.09) 09/09/18 23:48 Problem List - Problems (1) Dehydration Code(s): E86.0 - DEHYDRATION (2) Abdominal pain Code(s): R10.9 - UNSPECIFIED ABDOMINAL PAIN Qualifiers: Abdominal location: generalized Qualified Code(s): R10.84 - Generalized abdominal pain Assessment/Plan Current Medications Generic Name Dose Route Start Last Admin Trade Name Freq PRN Reason Stop Dose Admin Ceftriaxone Sodium 1 gm/ 50 mls @ 100 mls/hr 09/10/18 12:15 09/13/18 10:29 Dextrose IVPB 100 mls/hr DAILY [facility] Administration Protocol Sodium Chloride 1,000 mls @ 100 mls/hr 09/12/18 17:42 09/12/18 18:59 Normal Saline - IV 100 mls/hr ASDIR [facility] Administration Metronidazole 250 mg 09/11/18 22:00 09/13/18 05:42 Flagyl - PO 250 mg TID [facility] Administration Ondansetron HCl 4 mg 09/10/18 18:33 09/12/18 16:27 Zofran Injection IVPB 4 mg Q6H PRN Administration NAUSEA AND/OR VOMITING Pantoprazole Sodium 40 mg 09/12/18 10:00 09/13/18 10:29 Protonix - PO 40 mg DAILY [facility] Administration Impression 1. SAVAGE 2. dehydration 3. abdominal pain Plan - repeat ua negative - renal function improving - pt tolerating diet - follow serologies - discussed with medical team Dr Muse
[2018-09-14 18:15] LABS: ATYPICAL pANCA <1:20 titer (Neg:<1:20); C-ANCA <1:20 titer (Neg:<1:20); P-ANCA <1:20 titer (Neg:<1:20)
== END 2018-09-13 11:42 | disposition home or self-care (01) | DRG 469 ==
LOC: JER 21:57 → JERBED 09-10 03:57 → J7W 09-10 05:57 → OBSVTOIN 09-10 10:48
PROVIDERS: ADMIT Family Medicine; ATTEND Family Medicine
DX: N17.9 Acute kidney failure, unspecified (principal); E86.0 Dehydration; R10.9 Unspecified abdominal pain
CPT/HCPCS: 36415; 74176-TC; 76705-TC; 76775-TC; 76830-TC; 80053; 81003; 82150; 82436; 83520; 83605; 83615; 83690; 83935; 84133; 84300; 84703; 85025; 85610; 85730; 86038; 86256; 86850; 86900; 86901; 87045; 87046; 87086; 87324; 87449; 99283-25; G0378; J0131; J7030